=== PATIENT | male | born 1970 | race Caucasian/White ===

== ENCOUNTER 2016-04-24 19:52 | Emergency (ER) | payer OTHER ==
[~2016-04-24] VITALS: Ht 175.3 cm; Wt 81.0 kg
[~2016-04-24 19:52] MED LIST: BACTRIM DS1 TAB OR; BACTRIM DS1 TAB PO; CEPHALEXIN500 MG PO; LORTAB 5 OR; NAPROSYN500 MG OR; NO HOME MEDS; ULTRAM50 M1 PO
[2016-04-24 20:41] LABS: HEMATOCRIT 47.9 % (39.0-50.0); HEMOGLOBIN 16.4 g/dl (14.0-18.0); IMMATURE GRANULOCYTES 0.4 % (0.0-1.0); MEAN CELL VOLUME 94.1 fL CALC (80.0-100.0); MEAN CORPUSCULAR HGB 32.2 pG CALC (26.0-32.0); MEAN CORPUSCULAR HGB CONC 34.2 g/L CALC (32.0-36.0); NEUT# 8.04 thou/uL (1.82-7.42); RED BLOOD COUNT 5.09 mill/uL (4.70-6.10); RED CELL DISTRI WIDTH 13.6 % (11.5-15.5)
[2016-04-24 20:54] LABS: ALBUMIN 4.5 g/dL (3.2-5.0); ALKALINE PHOSPHATASE 88 u/l (38-126); ANION GAP 17 (6-22 (CALC)); BILIRUBIN, TOTAL 0.4 mg/dL (0.0-1.4); BUN 23 mg/dL (9-20); BUN/CREATININE RATIO 22 (12-20 (CALC)); CALCIUM 9.7 mg/dL (8.4-10.2); CARBON DIOXIDE 26 mmol/l (22-30); CHLORIDE 106 mmol/l (95-108); CREATININE 1.1 mg/dL (0.7-1.3); GFR > 60 ML/MIN (>=60 (CALC)); GFR FOR AFR.AMER. > 60 ML/MIN (>=60 (CALC)); GLUCOSE 102 mg/dL (75-110); SGOT/AST 28 u/l (17-59); SGPT/ALT 22 u/l (21-72); SODIUM 144 mmol/l (137-146); TOTAL PROTEIN 8.4 g/dL (6.3-8.2)
[2016-04-24] MEDS ORDERED: FAMVIR500 MG PO (21:22)
[2016-04-24] MEDS ORDERED: MEDDOSEPAK PO (21:22)
[2016-04-24] MEDS ORDERED: VISINE TEAR1 OS (21:22)
[2016-04-24 21:48] VITALS: BP 135/84
== END 2016-04-24 21:54 | disposition home or self-care (01) | DRG 74 ==
LOC: ED 19:52
PROVIDERS: Emergency Medicine
DX: G51.0 Bell's palsy (principal); R42 Dizziness and giddiness

== ENCOUNTER 2018-07-01 18:21 | Emergency (ER) | payer BC ==
[~2018-07-01] VITALS: Ht 175.3 cm; Wt 75.0 kg
[~2018-07-01 18:21] MED LIST changes: +FAMVIR500 MG PO; +MEDDOSEPAK PO; +VISINE TEAR1 OS
[2018-07-01] MEDS ORDERED: BACTROBAN TOP (18:54)
[2018-07-01 19:05] VITALS: BP 133/80
== END 2018-07-01 19:04 | disposition home or self-care (01) | DRG 607 ==
LOC: ED 18:21
DX: D17.22 Benign lipomatous neoplasm of skin and subcutaneous tissue of left arm (principal); L72.9 Follicular cyst of the skin and subcutaneous tissue, unspecified; L70.0 Acne vulgaris; F17.200 Nicotine dependence, unspecified, uncomplicated

== ENCOUNTER 2018-09-05 19:36 | Emergency (ER) | payer BC ==
[~2018-09-05] VITALS: Ht 175.3 cm; Wt 82.0 kg
[~2018-09-05 19:36] MED LIST changes: +BACTROBAN TOP
[2018-09-05 20:40] VITALS: BP 147/88
== END 2018-09-05 20:40 | disposition home or self-care (01) | DRG 603 ==
LOC: ED 19:36
PROC: 0H96XZZ Drainage of Back Skin, External Approach (ICD-10-PCS; principal; 2018-09-05)
DX: L02.212 Cutaneous abscess of back [any part, except buttock and flank] (principal); R50.9 Fever, unspecified

== ENCOUNTER 2018-09-08 15:38 | Emergency (ER) | payer BC ==
[~2018-09-08] VITALS: Ht 175.3 cm; Wt 82.0 kg
[2018-09-08 16:30] VITALS: BP 145/93
== END 2018-09-08 16:30 | disposition home or self-care (01) | DRG 951 ==
LOC: ED 15:38
DX: Z48.01 Encounter for change or removal of surgical wound dressing (principal); H60.91 Unspecified otitis externa, right ear; F17.210 Nicotine dependence, cigarettes, uncomplicated

== ENCOUNTER 2019-03-10 | Emergency (ER) | payer BC ==
[2019-03-10 20:23] LABS: HEMOGLOBIN 15.4 g/dl (14.0-18.0); IMMATURE GRANULOCYTES 0.5 % (0.0-5.0); MEAN CELL VOLUME 92.8 fL CALC (80.0-100.0); MEAN CORPUSCULAR HGB 31.8 pG CALC (26.0-32.0); MEAN CORPUSCULAR HGB CONC 34.2 g/L CALC (32.0-36.0); NEUT# 9.65 thou/uL (1.82-7.42); RED BLOOD COUNT 4.85 mill/uL (4.70-6.10); RED CELL DISTRI WIDTH 12.8 % (11.5-15.5)
[2019-03-10 20:46] LABS: ALBUMIN 4.3 g/dL (3.2-5.0); ALKALINE PHOSPHATASE 78 u/l (38-126); ANION GAP 13 (6-22 (CALC)); BILIRUBIN, TOTAL 0.4 mg/dL (0.0-1.4); BUN 17 mg/dL (9-20); BUN/CREATININE RATIO 20 (12-20 (CALC)); CARBON DIOXIDE 24 mmol/l (22-30); CHLORIDE 106 mmol/l (95-108); CREATININE 0.8 mg/dL (0.7-1.3); GFR > 60 ML/MIN (>=60 (CALC)); GFR FOR AFR.AMER. > 60 ML/MIN (>=60 (CALC)); LIPASE 107 u/l (23-300); POTASSIUM 3.6 mmol/l (3.5-5.1); SGOT/AST 44 u/l (17-59); SODIUM 140 mmol/l (137-146); TOTAL PROTEIN 7.7 g/dL (6.3-8.2)
[2019-03-10 20:58] LABS: MYOGLOBIN 88 ng/mL (0 - 121)
== END 2019-03-10 22:11 | disposition short-term general hospital (02) | DRG 282 ==
DX: I21.4 Non-ST elevation (NSTEMI) myocardial infarction (principal); I10 Essential (primary) hypertension; F17.200 Nicotine dependence, unspecified, uncomplicated
CPT/HCPCS: J1644

== ENCOUNTER 2020-09-16 19:18 | Emergency (ER) | payer SELFPAY | END 2020-09-16 22:00 | disposition left against medical advice (07) | DRG 951 | LOC: ED 19:18 → LWOBS 22:00 | DX: Z53.21 Procedure and treatment not carried out due to patient leaving prior to being seen by health care provider (principal) ==

== ENCOUNTER 2020-11-28 20:00 | Emergency (ER) | payer OTHER ==
[~2020-11-28] VITALS: Ht 175.3 cm; Wt 86.0 kg
[2020-11-28 21:23] LABS: HEMATOCRIT 47.7 % (39.0-50.0); HEMOGLOBIN 15.9 g/dl (14.0-18.0); IMMATURE GRANULOCYTES 0.2 % (0.0-5.0); MEAN CELL VOLUME 93.5 fL CALC (80.0-100.0); MEAN CORPUSCULAR HGB 31.2 pG CALC (26.0-32.0); MEAN CORPUSCULAR HGB CONC 33.3 g/dL CAL (32.0-36.0); NEUT# 4.15 thou/uL (1.82-7.42); RED BLOOD COUNT 5.1 mill/uL (4.70-6.10); RED CELL DISTRI WIDTH 12.6 % (11.5-15.5)
[2020-11-28 21:38] LABS: ALBUMIN 3.8 g/dL (3.2-5.0); ALKALINE PHOSPHATASE 87 u/l (38-126); ANION GAP 13 (6-22 (CALC)); BILIRUBIN, TOTAL 0.3 mg/dL (0.0-1.4); BUN 16 mg/dL (9-20); BUN/CREATININE RATIO 18 (12-20 (CALC)); CARBON DIOXIDE 25 mmol/l (22-30); CHLORIDE 107 mmol/l (95-108); CREATININE 0.9 mg/dL (0.7-1.3); GFR > 60 ML/MIN (>=60 (CALC)); GFR FOR AFR.AMER. > 60 ML/MIN (>=60 (CALC)); POTASSIUM 3.6 mmol/l (3.5-5.1); SGOT/AST 30 u/l (17-59); SODIUM 141 mmol/l (137-146); TOTAL PROTEIN 7.1 g/dL (6.3-8.2)
[2020-11-28] MEDS ORDERED: ZOFRAN4 MG/TAB PO (21:54)
[2020-11-28 22:30] VITALS: BP 126/67
== END 2020-11-28 22:17 | disposition home or self-care (01) | DRG 179 ==
LOC: ED 20:00
PROVIDERS: Family Medicine
DX: U07.1 COVID-19 (principal); F17.200 Nicotine dependence, unspecified, uncomplicated; I25.2 Old myocardial infarction; Z95.5 Presence of coronary angioplasty implant and graft

== ENCOUNTER 2021-03-13 14:37 | Emergency (ER) | payer SELFPAY ==
[~2021-03-13] VITALS: Ht 175.3 cm; Wt 84.0 kg
[~2021-03-13 14:37] MED LIST changes: +ZOFRAN4 MG/TAB PO
[2021-03-13] MEDS ORDERED: KEFLEX500 MG PO (16:40)
[2021-03-13] MEDS ORDERED: BACTRIM DS1 TAB PO (16:40)
[2021-03-13] MEDS ORDERED: HYDROCO/APAP1 TA9 PO (16:40)
[2021-03-13 17:13] VITALS: BP 144/86
== END 2021-03-13 17:20 | disposition home or self-care (01) | DRG 603 ==
LOC: ED 14:37
PROC: 0H96XZZ Drainage of Back Skin, External Approach (ICD-10-PCS; principal; 2021-03-13)
DX: L02.212 Cutaneous abscess of back [any part, except buttock and flank] (principal); I25.2 Old myocardial infarction; F17.200 Nicotine dependence, unspecified, uncomplicated; Z95.5 Presence of coronary angioplasty implant and graft

== ENCOUNTER 2021-03-15 16:55 | Emergency (ER) | payer SELFPAY ==
[~2021-03-15] VITALS: Ht 175.3 cm; Wt 84.1 kg
[~2021-03-15 16:55] MED LIST changes: +HYDROCO/APAP1 TA9 PO; +KEFLEX500 MG PO
[2021-03-15 18:55] VITALS: BP 142/88
== END 2021-03-15 18:55 | disposition home or self-care (01) | DRG 603 ==
LOC: ED 16:55
DX: L02.212 Cutaneous abscess of back [any part, except buttock and flank] (principal); I25.2 Old myocardial infarction; F17.200 Nicotine dependence, unspecified, uncomplicated; Z95.5 Presence of coronary angioplasty implant and graft; Z53.29 Procedure and treatment not carried out because of patient's decision for other reasons

== ENCOUNTER 2021-08-05 11:12 | Emergency (ER) | payer SELFPAY ==
[~2021-08-05] VITALS: Ht 175.3 cm; Wt 86.4 kg
[2021-08-05 11:53] VITALS: BP 157/88
[2021-08-05 12:00] VITALS: BP 147/69
[2021-08-05 12:15] VITALS: BP 156/84
[2021-08-05 12:30] VITALS: BP 133/84
[2021-08-05] MEDS ORDERED: VIBRAMYCIN100 M2 PO (13:50)
[2021-08-05] MEDS ORDERED: LORTAB5 PO (13:50)
[2021-08-05] MEDS ORDERED: NAPROXEN500 MG PO (13:50)
[2021-08-05 14:04] VITALS: BP 133/84
== END 2021-08-05 14:30 | disposition home or self-care (01) | DRG 603 ==
LOC: ED 11:12
PROC: 0H96XZZ Drainage of Back Skin, External Approach (ICD-10-PCS; principal; 2021-08-05)
DX: L02.212 Cutaneous abscess of back [any part, except buttock and flank] (principal); F17.200 Nicotine dependence, unspecified, uncomplicated; I25.2 Old myocardial infarction; B95.7 Other staphylococcus as the cause of diseases classified elsewhere; Z95.5 Presence of coronary angioplasty implant and graft

== ENCOUNTER 2022-07-30 19:11 | Emergency (ER) | payer SELFPAY ==
[~2022-07-30] VITALS: Ht 177.8 cm; Wt 74.0 kg
[~2022-07-30 19:11] MED LIST changes: +LORTAB5 PO; +NAPROXEN500 MG PO; +VIBRAMYCIN100 M2 PO
[2022-07-30] MEDS ORDERED: AMOXICILLIN500 MG PO (20:12)
[2022-07-30 20:22] VITALS: BP 149/101
== END 2022-07-30 20:24 | disposition home or self-care (01) | DRG 605 ==
LOC: ED 19:11
PROC: 0HQCXZZ Repair Left Upper Arm Skin, External Approach (ICD-10-PCS; principal; 2022-07-30)
DX: S41.112A Laceration without foreign body of left upper arm, initial encounter (principal); I25.2 Old myocardial infarction; F17.200 Nicotine dependence, unspecified, uncomplicated; W26.9XXA Contact with unspecified sharp object(s), initial encounter; Y93.89 Activity, other specified; Y92.009 Unspecified place in unspecified non-institutional (private) residence as the place of occurrence of the external cause; Z95.5 Presence of coronary angioplasty implant and graft

== ENCOUNTER 2022-09-22 13:03 | Emergency (ER) | payer SELFPAY ==
[~2022-09-22] VITALS: Ht 177.8 cm; Wt 86.0 kg
[~2022-09-22 13:03] MED LIST changes: +AMOXICILLIN500 MG PO
[2022-09-22 13:57] VITALS: BP 156/95
[2022-09-22] MEDS ORDERED: NAPROXEN500 MG PO (15:47)
[2022-09-22 16:13] VITALS: BP 156/95
== END 2022-09-22 16:15 | disposition home or self-care (01) | DRG 563 ==
LOC: ED 13:03
DX: S93.402A Sprain of unspecified ligament of left ankle, initial encounter (principal); F17.200 Nicotine dependence, unspecified, uncomplicated; I25.2 Old myocardial infarction; X50.0XXA Overexertion from strenuous movement or load, initial encounter